=== PATIENT | female | born 1985 | race Caucasian/White ===

== ENCOUNTER 2018-04-21 09:19 | Day surgery (SDC) | payer OTHER ==
[2018-04-14 13:48] VITALS: BMI 34.0
[2018-04-21] MEDS ORDERED: PROPOFOL 20 ML ONE ×2 (09:58)
[2018-04-21] MEDS ORDERED: MIDAZOLAM HCL 2 MG/2 ML SINGLE DOSE VIAL ONE (09:58)
[2018-04-21] MEDS ORDERED: ONDANSETRON 4 MG/2 ML VIAL ONE (10:01)
[2018-04-21] MEDS ORDERED: LIDOCAINE HCL 2% JELLY (5 ML/TUBE) ONE (10:01)
[2018-04-21] MEDS ORDERED: ceFAZolin SODIUM 1 GM VIAL ONE (10:01)
[2018-04-21] MEDS ORDERED: KETOROLAC TROMETHAMINE 30 MG/1 ML VIAL ONE (10:01)
[2018-04-21] MEDS ORDERED: LIDOCAINE HCL/PF 2% SDV 5ML VIAL ONE (10:01)
[2018-04-21] MEDS ORDERED: DEXAMETHASONE SOD PHOSPHATE 4 MG/1 ML VIAL ONE (10:01)
[2018-04-21] MEDS ORDERED: BUPIVACAINE HCL 0.25% 125 MG/50 ML VIAL ONE (10:44)
[2018-04-21] MEDS ORDERED: DESFLURANE GAS 240 ML BOTTLE IH ONE (11:17)
[2018-04-21] MEDS ORDERED: ONDANSETRON 4 MG/2 ML VIAL IVPUSH PRN (12:29)
[2018-04-21] MEDS ORDERED: oxyCODONE HCL 5 MG TABLET PO PRN (12:29)
[2018-04-21] MEDS ORDERED: LACTATED RINGERS SOLUTION 1,000 ML IV SCH (12:30)
[2018-04-21 13:24] VITALS: TEMP 97.9
--- NOTE | 2018-04-21 13:56 | OP ---
DATE OF OPERATION: 04/21/2018 PREOPERATIVE DIAGNOSIS: Right knee lateral meniscus tear. POSTOPERATIVE DIAGNOSIS: Right knee lateral meniscus tear. PROCEDURE: Right knee arthroscopy with partial lateral meniscectomy. SURGEON: Kendall Espitia MD ANESTHESIA: General. POSTOPERATIVE CONDITION: Stable. COMPLICATIONS: None. INDICATIONS: This is a pleasant woman who had been suffering from lateral knee pain. MRI demonstrated complex lateral meniscal tear. Treatment options including nonoperative to operative management were reviewed. Operative risks were reviewed in detail including bleeding, infection, neurovascular injury, need for further surgery, postoperative pain and stiffness, progression of osteoarthritis. We discussed medical issues such as heart attack, stroke, DVT, PE, and . I addressed the use of perioperative antibiotic and DVT prophylaxis. I discussed the postoperative rehabilitation protocol. I addressed all the patient's questions and concerns. She voiced understanding and elected to proceed. DESCRIPTION OF PROCEDURE: Patient was brought to the operating room where general anesthesia was administered. The right lower extremity was prepped and draped in the usual sterile fashion. A preoperative dose of antibiotics given and the usual timeout procedure was performed. The right knee was examined, demonstrating good stability. There was a moderate effusion. There was full range of motion. Portal sites were now marked out and injected subcutaneously with 0.25% Marcaine. The arthroscope was then passed after establishing a portal with an 11 blade. Examination of the patellofemoral joint demonstrated no articular lesions. The arthroscope was passed to the notch, demonstrating intact ACL and PCL. The medial portal was established under spinal needle localization. Examination of the medial compartment demonstrated no articular lesions. The meniscus was somewhat hypertrophic, but no tears were noted. It was probed and found to be stable. The arthroscope was then passed into the lateral compartment. Here, a complex tear was noted of the lateral meniscus involving the posterior horn, body, and anterior horn. Utilizing the meniscal shaver as well as a biter, this was debrided down to a stable base. High-grade, partial-thickness, chondral loss was noted, more so on the tibial side than on the femoral side. At this point, the excess fluid was withdrawn from the knee. The portals were sutured using 3-0 nylon. The patient was placed in a sterile dressing. She was extubated and transferred to the recovery room in stable condition. KENDALL ESPITIA M.D. [id number]
[2018-04-21 15:05] VITALS: BP 120/74; PULSE 96
== END 2018-04-21 14:20 | disposition home or self-care (01) ==
LOC: FASU 09:19
PROVIDERS: ATTEND Orthopaedic Surgery Sports Medicine
PROC: 0SBC4ZZ Excision of Right Knee Joint, Percutaneous Endoscopic Approach (ICD-10-PCS; principal; 2018-04-21 11:43)
DX: S83.281A Other tear of lateral meniscus, current injury, right knee, initial encounter (principal); X58.XXXA Exposure to other specified factors, initial encounter; Y93.9 Activity, unspecified; Y92.9 Unspecified place or not applicable
CPT/HCPCS: 84703; 94760